=== PATIENT | female | born 1980 | race American Indian/Alaskan Native ===

== ENCOUNTER 2016-12-13 18:05 | Emergency (ER) | payer MEDICAID, OTHER ==
[2016-12-13 23:07] VITALS: BP 118/54
[2016-12-13] MEDS ORDERED: Clindamycin HCl 150 MG Cap PO ONE (23:15)
[2016-12-13] MEDS ORDERED: Lidocaine 2% Viscous Solution 15 ML Cup PO ONE (23:15)
--- NOTE | 2016-12-13 23:21 | EDM.PDOC ---
ED HPI GENERAL MEDICAL PROBLEM - General Chief Complaint: General Stated Complaint: TOOTH PAIN/[id number] Time Seen by Provider: 12/13/16 23:11 Source of Information: Reports: Patient History Limitations: Reports: No Limitations - History of Present Illness INITIAL COMMENTS - FREE TEXT/NARRATIVE: This 36 yo female patient reports to the ED with dental pain (right lower posterior). The patient has been in pain for the past 3-4 days and the pain is getting worse. The patient has an appointment with her dentist in about 1 week. 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 [No Known Home Meds] 09/11/14 [History] Past Medical History - Past Health History Medical/Surgical History: Denies Medical/Surgical History - Infectious Disease History Infectious Disease History: Reports: None - Past Surgical History HEENT Surgical History: Reports: Tonsillectomy Social & Family History - Family History Family Medical History: Noncontributory - Tobacco Use Smoking Status *Q: Current Every Day Smoker Years of Tobacco use: 21 Packs/Tins Daily: 0.5 Used Tobacco, but Quit: No - Caffeine Use Caffeine Use: Reports: Energy Drinks, Soda - Alcohol Use Days Per Week of Alcohol Use: 0 - Recreational Drug Use Recreational Drug Use: Yes Recreational Drug Type: Reports: Marijuana/Hashish Recreational Drug Use Frequency: Weekly - Living Situation & Occupation Living situation: Reports: Occupation: Employed ED ROS GENERAL - Review of Systems Review Of Systems: ROS reveals no pertinent complaints other than HPI. ED EXAM, GENERAL - Physical Exam Exam: See Below Exam Limited By: No Limitations General Appearance: Alert, WD/WN, Moderate Distress Eye Exam: Bilateral Eye: EOMI, Normal Inspection, PERRL Ears: Normal External Exam, Normal Canal, Hearing Grossly Normal, Normal TMs Nose: Normal Inspection, Normal Mucosa, No Blood Throat/Mouth: Normal Lips, Other (the patient has a chip and erythema of the right lower posterior tooth. ) Head: Atraumatic, Normocephalic Neck: Normal Inspection, Supple, Non-Tender, Full Range of Motion Respiratory/Chest: No Respiratory Distress, Lungs Clear, Normal Breath Sounds, No Accessory Muscle Use, Chest Non-Tender Cardiovascular: Normal Peripheral Pulses, Regular Rate, Rhythm, No Edema, No Gallop, No JVD, No Murmur, No Rub GI/Abdominal: Normal Bowel Sounds, Soft, Non-Tender, No Organomegaly, No Distention, No Abnormal Bruit, No Mass (Female) Exam: Deferred Rectal (Female) Exam: Deferred Back Exam: Normal Inspection, Full Range of Motion, NT Extremities: Normal Inspection, Normal Range of Motion, Non-Tender, Normal Capillary Refill, No Pedal Edema Neurological: Alert, Oriented, CN II-XII Intact, Normal Cognition, Normal Gait, Normal Reflexes, No Motor/Sensory Deficits Psychiatric: Normal Affect, Normal Mood Skin Exam: Warm, Dry, Intact, Normal Color, No Rash Lymphatic: No Adenopathy Course - Vital Signs Last Recorded V/S: Last Vital Signs Temp 36.8 C 12/13/16 23:06 Pulse 57 L 12/13/16 23:06 Resp 18 12/13/16 23:06 BP 118/54 L 12/13/16 23:06 Pulse Ox 99 12/13/16 23:06 - Orders/Labs/Meds Meds: Medications Discontinued Medications Generic Name Dose Route Start Last Admin Trade Name Yannickq PRN Reason Stop Dose Admin Clindamycin HCl 300 mg 12/13/16 23:15 Cleocin PO 12/13/16 23:16 ONETIME ONE Lidocaine HCl 15 ml 12/13/16 23:15 Xylocaine 2% Viscous PO 12/13/16 23:16 ONETIME ONE Departure - Departure Time of Disposition: 23:18 Disposition: Home, Self-Care 01 Condition: fair Clinical Impression: Dental abscess - Discharge Information Instructions: Dental Abscess, [id number] Forms: ED Department Discharge Care Plan Goals: The patient was advised of the examination results during the visit. The patient was given an oral dose of Clindamycin and Viscous Lidocaine while in the ED. The patient was discharged with a script for Clindamycin (300 mg) to take 1 by mouth 3 times per day for 10 days and Viscous Lidocaine (2%) #100 mL to apply 5-10 mL to affected area 3 times per day as needed. If the patient has any additional symptoms or concerns, the patient should follow-up with her dentist or return to the emergency department.
== END 2016-12-13 23:30 | disposition home or self-care (01) ==
LOC: DL.ED 18:05
DX: K04.7 Periapical abscess without sinus (principal); F17.210 Nicotine dependence, cigarettes, uncomplicated; Z98.890 Other specified postprocedural states
CPT/HCPCS: 99283; A9270

== ENCOUNTER 2017-10-11 21:05 | Emergency (ER) | payer MEDICAID ==
[2017-10-11] MEDS ORDERED: Ketorolac 30 MG/ML SDV IVPUSH ONE (21:36)
--- NOTE | 2017-10-11 21:38 | EDM.PDOC ---
ED HPI GENERAL MEDICAL PROBLEM - General Chief Complaint: General Stated Complaint: TOOTH PAIN Time Seen by Provider: 10/11/17 21:31 Source of Information: Reports: Patient, RN, RN Notes Reviewed History Limitations: Reports: No Limitations - History of Present Illness INITIAL COMMENTS - FREE TEXT/NARRATIVE: Pt presents to the ER with c/o mouth pain. She states that she has a molar that is crooked on the lower right side. She states she clenched her teeth during the night last night. She states this has made her mouth hurt since she woke up. Upon arrival, the patient is crying in pain. She states she has been seen in the ER for this in the past, and has not seen a dentist. She states she has taken ibuprofen, tylenol, and viscous lidocaine that she was previously prescribed. 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 [No Known Home Meds] 09/11/14 [History] Past Medical History - Past Health History Medical/Surgical History: Denies Medical/Surgical History Psychiatric History: Reports: Anxiety - Infectious Disease History Infectious Disease History: Reports: None - Past Surgical History HEENT Surgical History: Reports: Tonsillectomy Social & Family History - Family History Family Medical History: Noncontributory - Tobacco Use Smoking Status *Q: Current Every Day Smoker Years of Tobacco use: 22 Packs/Tins Daily: 0.5 Used Tobacco, but Quit: No - Caffeine Use Caffeine Use: Reports: Energy Drinks - Alcohol Use Days Per Week of Alcohol Use: 0 - Recreational Drug Use Recreational Drug Use: Yes Recreational Drug Type: Reports: Marijuana/Hashish Recreational Drug Use Frequency: Daily - Living Situation & Occupation Living situation: Reports: Occupation: Employed ED ROS GENERAL - Review of Systems Review Of Systems: ROS reveals no pertinent complaints other than HPI. ED EXAM, GENERAL - Physical Exam Exam: See Below Exam Limited By: Other (crying in pain) General Appearance: Alert, WD/WN, Severe Distress Eye Exam: Bilateral Eye: EOMI, Normal Inspection Ears: Normal External Exam, Hearing Grossly Normal Nose: Normal Inspection Throat/Mouth: Normal Inspection, Normal Lips, Normal Gums, Normal Oropharynx, Normal Voice, No Airway Compromise, Other (No erythema, swelling, bleeding, abscess of the area. Tooth 46 unremarkable) Head: Atraumatic, Normocephalic Neck: Normal Inspection, Supple, Non-Tender, Full Range of Motion Respiratory/Chest: No Respiratory Distress, Lungs Clear, Normal Breath Sounds, No Accessory Muscle Use, Chest Non-Tender Cardiovascular: Normal Peripheral Pulses, Regular Rate, Rhythm, No Edema, No Gallop, No JVD, No Murmur, No Rub Peripheral Pulses: 2+: Radial (L), Radial (R) GI/Abdominal: Normal Bowel Sounds, Soft, Non-Tender, No Organomegaly, No Distention, No Abnormal Bruit, No Mass (Female) Exam: Deferred Rectal (Female) Exam: Deferred Back Exam: Normal Inspection, Full Range of Motion, NT Extremities: Normal Inspection, Normal Range of Motion, Non-Tender, Normal Capillary Refill, No Pedal Edema Neurological: Alert, Oriented, CN II-XII Intact, Normal Cognition, Normal Gait, Normal Reflexes, No Motor/Sensory Deficits Psychiatric: Anxious, Tearful Skin Exam: Warm, Dry, Intact, Normal Color, No Rash Lymphatic: No Adenopathy Course - Vital Signs Last Recorded V/S: Last Vital Signs Temp 98.4 F 10/11/17 21:16 Pulse 94 10/11/17 21:16 Resp 20 10/11/17 21:16 BP Pulse Ox 97 10/11/17 21:16 - Orders/Labs/Meds Meds: Medications Discontinued Medications Generic Name Dose Route Start Last Admin Trade Name Lynsey PRN Reason Stop Dose Admin Ketorolac Tromethamine 60 mg 10/11/17 21:41 10/11/17 21:43 Toradol IM 10/11/17 21:42 60 mg ONETIME ONE Administration Departure - Departure Time of Disposition: 21:36 Disposition: Home, Self-Care 01 Clinical Impression: Mouth pain - Discharge Information Forms: ED Department Discharge Additional Instructions: Continue using the viscous lidocaine that you have Continue alternating tylenol and ibuprofen as directed for pain Follow up with your dentist
[2017-10-11] MEDS ORDERED: Ketorolac 30 MG/ML SDV IM ONE (21:41)
== END 2017-10-11 21:56 | disposition home or self-care (01) ==
LOC: DL.ED 21:05
DX: K13.79 Other lesions of oral mucosa (principal); F17.210 Nicotine dependence, cigarettes, uncomplicated
CPT/HCPCS: 96372; 99282; J1885

== ENCOUNTER 2021-01-26 17:25 | Emergency (ER) | payer MEDICAID ==
[2021-01-26] MEDS ORDERED: Tetracaine HCl/PF 0.5% 4 ML Bottle EYERT ONE (19:59)
[2021-01-26] MEDS ORDERED: Fluorescein 1 MG Ophth Strip EYERT ONE (19:59)
[2021-01-26 20:02] VITALS: BP 110/65; PULSE 79
[2021-01-26] MEDS ORDERED: Tetracaine HCl/PF 0.5% 4 ML Bottle ONE (20:22)
[2021-01-26] MEDS ORDERED: Azithromycin 250 MG Tab PO ONE (20:33)
[2021-01-26] MEDS ORDERED: cefTRIAXone 1 GM, Lidocaine 1% 2.1 ML IM ONE ×2 (20:33)
[2021-01-26 20:49] LABS: ANION GAP 11.6 mEq/L (7-13); CHLORIDE,CL 104 mmol/L (98-107); SODIUM,NA 141 mmol/L (136-145)
--- NOTE | 2021-01-26 20:52 | EDM.PDOC ---
ED HPI GENERAL MEDICAL PROBLEM - General Chief Complaint: Eye Problems Stated Complaint: RIGHT EYE INFECTED, PAIN PER PT Time Seen by Provider: 01/26/21 20:00 Source of Information: Reports: Patient, RN History Limitations: Reports: No Limitations - History of Present Illness INITIAL COMMENTS - FREE TEXT/NARRATIVE: ED with c/o pain and drainage to right eye. States semen in right eye saturday, increasing redness swelling and drainage worsening today. Reports possibility of STD. Eye painful, drainage, thick whitish yellow. No change in vision. No other symptoms Right Eye Pain Score (Numeric/FACES): 8 - Related Data Allergies Allergy/AdvReac Type Severity Reaction Status Date / Time No Known Allergies Allergy Verified 10/11/17 21:10 Home Meds: Home Meds Erythromycin Base [Erythromycin 0.5% Ophth Oint] 01/26/21 [History] Soft Lens Rinse,Store Solution [Saline Sensitive Eyes] 360 ml MC 01/26/21 [History] Past Medical History - Past Health History Medical/Surgical History: Denies Medical/Surgical History HEENT History: Reports: None Cardiovascular History: Reports: None Respiratory History: Reports: None Gastrointestinal History: Reports: None Genitourinary History: Reports: None 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: Musculoskeletal History: Reports: None Neurological History: Reports: None Psychiatric History: Reports: Anxiety Endocrine/Metabolic History: Reports: None Hematologic History: Reports: None Immunologic History: Reports: None Oncologic (Cancer) History: Reports: None Dermatologic History: Reports: None - Infectious Disease History Infectious Disease History: Reports: None - Past Surgical History Head Surgeries/Procedures: Reports: None HEENT Surgical History: Reports: Tonsillectomy Female Surgical History: Reports: D&C Social & Family History - Family History Family Medical History: No Pertinent Family History - Tobacco Use Tobacco Use Status *Q: Current Every Day Tobacco User Years of Tobacco use: 20 Packs/Tins Daily: 0.5 - Caffeine Use Caffeine Use: Reports: Soda - Recreational Drug Use Recreational Drug Use: Yes Recreational Drug Type: Reports: Marijuana/Hashish, Methamphetamine Recreational Drug Use Frequency: Socially - Living Situation & Occupation Living situation: Reports: Occupation: Employed ED ROS GENERAL - Review of Systems Review Of Systems: Comprehensive ROS is negative, except as noted in HPI. ED EXAM GENERAL W FULL EYE - Physical Exam Exam: See Below Exam Limited By: No Limitations General Appearance: Alert, Mild Distress Eye Exam: Right Eye: Conjunctival Injection, Periorbital Changes (swelling errythema), Bilateral Eye: EOMI, PERRL Eyelids: Right: Erythema Conjunctiva & Sclera: Right: Conjunctival Edema, Injected, Subconjuctival Hemorrhage Cornea Exam: Right: Examined with Flourescein Extraocular Movements: Bilateral: Intact Pupillary Size: Bilateral: 4 mm Pupillary Reaction: Bilateral: Brisk Ears: Normal External Exam, Hearing Grossly Normal Nose: Normal Inspection Throat/Mouth: Normal Inspection Neck: Normal Inspection Respiratory/Chest: No Respiratory Distress, Lungs Clear, Normal Breath Sounds Cardiovascular: Normal Peripheral Pulses, Regular Rate, Rhythm GI/Abdominal: Normal Bowel Sounds Extremities: Normal Inspection, Normal Range of Motion Neurological: Alert, Oriented, Normal Cognition Psychiatric: Normal Affect Skin Exam: Warm, Dry Course - Vital Signs Last Recorded V/S: Last Vital Signs Temp 98.5 F 01/26/21 19:59 Pulse 79 01/26/21 19:59 Resp 16 01/26/21 19:59 BP 110/65 01/26/21 19:59 Pulse Ox 99 01/26/21 19:59 - Orders/Labs/Meds Orders: Active Orders 24 hr Category Date Time Status CULTURE BLOOD [BC] Stat Lab 01/26/21 20:20 Results CULTURE EYE [RM] Stat Lab 01/26/21 20:20 Received MISC TEST Stat Lab 01/26/21 20:30 Received Labs: Laboratory Tests 01/26/21 01/26/21 Range/Units 20:20 20:20 WBC 10.6 H (5.0-10.0) 10^3/uL RBC 4.08 L (4.2-5.4) 10^6/uL Hgb 12.8 (12.0-16.0) g/dL Hct 38.2 (37.0-47.0) % MCV 93.6 (80-100) fL MCH 31.4 (27.0-34.0) pg MCHC 33.5 (33.0-35.0) g/dL Plt Count 372 (150-450) 10^3/uL Neut % (Auto) 74.5 (42.2-75.2) % Lymph % (Auto) 17.3 L (20.5-50.1) % Lucas % (Auto) 7.1 (2-8) % Eos % (Auto) 0.9 L (1.0-3.0) % Baso % (Auto) 0.2 (0.0-1.0) % Sodium 141 (136-145) mmol/L Potassium 3.6 (3.5-5.1) mmol/L Chloride 104 (98-107) mmol/L Carbon Dioxide 29 (21-32) mmol/L Anion Gap 11.6 (7-13) mEq/L BUN 7 (7-18) mg/dL Creatinine 0.79 (0.55-1.02) mg/dL Est Cr Clr Drug Dosing 86.88 mL/min Estimated GFR (MDRD) > 60 BUN/Creatinine Ratio 8.9 (No establ ref range) Glucose 96 (70-99) mg/dL Calcium 8.2 L (8.5-10.1) mg/dL Total Bilirubin 0.5 (0.2-1.0) mg/dL AST 10 L (15-37) U/L ALT 24 (14-59) U/L Alkaline Phosphatase 76 (46-116) U/L Total Protein 6.5 (6.4-8.2) g/dL Albumin 3.4 (3.4-5.0) g/dL Globulin 3.1 Albumin/Globulin Ratio 1.1 Meds: Medications Discontinued Medications Generic Name Dose Route Start Last Admin Trade Name Yannickq PRN Reason Stop Dose Admin Azithromycin 1,000 mg 01/26/21 20:33 01/26/21 20:58 Azithromycin 250 Mg Tab PO 01/26/21 20:34 1,000 mg ONETIME ONE Administration Ciprofloxacin Confirm 01/26/21 20:53 01/26/21 21:00 Ciprofloxacin 0.3% Ophth Soln 5 Ml Bottle Administered 01/26/21 20:54 1 bottle Dose Administration 5 ml .ROUTE .STK-MED ONE Ceftriaxone Sodium 1 gm/ 0 gm 01/26/21 20:33 01/26/21 20:57 Lidocaine HCl 2.1 ml IM 01/26/21 20:34 1 inj ONETIME ONE Administration Fluorescein Sodium 1 mg 01/26/21 19:59 01/26/21 20:07 Fluorescein 1 Mg Ophth Strip EYERT 01/26/21 20:00 1 mg ONETIME ONE Administration Tetracaine HCl 1 ml 01/26/21 19:59 01/26/21 20:07 Tetracaine Hcl/Pf 0.5% 4 Ml Bottle EYERT 01/26/21 20:00 1 ml ASDIRECTED ONE Administration Tetracaine HCl Confirm 01/26/21 20:22 Tetracaine Hcl/Pf 0.5% 4 Ml Bottle Administered 01/26/21 20:23 Dose 4 ml .ROUTE .STK-MED ONE Departure - Departure Time of Disposition: 20:47 Disposition: Home, Self-Care 01 Condition: Good Clinical Impression: Periorbital cellulitis of right eye Conjunctivitis Qualifiers: Conjunctivitis type: acute Acute conjunctivitis type: unspecified Laterality: right Qualified Code(s): H10.31 - Unspecified acute conjunctivitis, right eye - Discharge Information *PRESCRIPTION DRUG MONITORING PROGRAM REVIEWED*: No *COPY OF PRESCRIPTION DRUG MONITORING REPORT IN PATIENT RADHA: No Instructions: Bacterial Conjunctivitis, Adult, [id number] Forms: ED Department Discharge Additional Instructions: wipe drainage gently inner to outer follow up eye clinic tomorrow Augmentin 875mg one twice daily for 10 days cipro 2 drops every 2 hours while awake for one day then every 4 hours for 5 days dark glasses cool pack tonight Sepsis Event Note (ED) - Evaluation Sepsis Screening Result: No Definite Risk - Focused Exam Vital Signs: Vital Signs Temp Pulse Resp BP Pulse Ox 01/26/21 19:59 98.5 F 79 16 110/65 99 - My Orders Last 24 Hours: My Active Orders 01/26/21 20:20 CULTURE BLOOD [BC] Stat CULTURE EYE [RM] Stat - Assessment/Plan Last 24 Hours: My Active Orders 01/26/21 20:20 CULTURE BLOOD [BC] Stat CULTURE EYE [RM] Stat
[2021-01-26] MEDS ORDERED: Ciprofloxacin 0.3% Ophth Soln 5 ML Bottle ONE (20:53)
== END 2021-01-26 21:03 | disposition home or self-care (01) ==
LOC: DL.ED 17:25
DX: L03.213 Periorbital cellulitis (principal); H10.31 Unspecified acute conjunctivitis, right eye
CPT/HCPCS: 36415; 80053; 85025; 87040; 87070; 87077; 87529; 96372; 99283; A9270-GY; J0696

== ENCOUNTER 2021-10-18 11:14 | Emergency (ER) | payer MEDICAID ==
[2021-10-18 11:42] VITALS: BP 131/46; PULSE 98
[2021-10-18 11:57] LABS: ANION GAP 10.8 mEq/L (7-13); CHLORIDE,CL 101 mmol/L (98-107); SODIUM,NA 138 mmol/L (136-145)
[2021-10-18] MEDS ORDERED: HYDROmorphone 0.5 MG/0.5 ML Syringe IVPUSH ONE (12:07)
[2021-10-18] MEDS ORDERED: Sodium Chloride 0.9% 1,000 ML IV ONE (12:07)
[2021-10-18] MEDS ORDERED: Ondansetron 4 MG/2 ML SDV IVPUSH ONE (12:08)
[2021-10-18] MEDS ORDERED: Iopamidol 612 MG/ML 100 ML Bottle IVPUSH ONE (12:10)
[2021-10-18 12:18] LABS: BARBITURATES,URINE NEGATIVE (NEGATIVE); BENZODIAZEPINE,URINE NEGATIVE (NEGATIVE); MDMA (ECSTASY), URINE NEGATIVE (NEGATIVE); METHADONE,URINE NEGATIVE (NEGATIVE); METHAMPHETAMINES,URINE POSITIVE (NEGATIVE); OPIATES,URINE NEGATIVE (NEGATIVE); PHENCYCLIDINE,URINE NEGATIVE (NEGATIVE); TCA,URINE NEGATIVE (NEGATIVE)
[2021-10-18 12:19] LABS: AMPHETAMINES,URINE POSITIVE (NEGATIVE); OXYCODONE,URINE NEGATIVE (NEGATIVE)
[2021-10-18] MEDS: Sodium Chloride 0.9% 10 ML Syringe FLUSH PRN ×2 (12:49→12:57)
[2021-10-18] MEDS ORDERED: Ketorolac 30 MG/ML SDV IVPUSH ONE (13:56)
[2021-10-18] MEDS ORDERED: Ciprofloxacin 500 MG Tab PO ONE (13:56)
[2021-10-18] MEDS ORDERED: Doxycycline Monohydrate 100 MG Cap PO ONE (13:57)
[2021-10-18] MEDS ORDERED: cefTRIAXone 1 GM, Lidocaine 1% 2.1 ML IM ONE ×2 (13:58)
== END 2021-10-18 14:45 | disposition home or self-care (01) ==
LOC: DL.ED 11:14
DX: N30.00 Acute cystitis without hematuria (principal); Z72.0 Tobacco use; Z20.2 Contact with and (suspected) exposure to infections with a predominantly sexual mode of transmission
CPT/HCPCS: 36415; 74177; 80053; 80305-QW; 80307; 81001; 81025; 83605; 83690; 83735; 85025; 86140; 87086; 87491; 87563; 87591; 96372; 96374; 96375; 99284; 99284-25; A9270-GY; J0696; J1170; J1885; J2405; J3490; J7030; Q9967

== ENCOUNTER 2022-10-08 18:19 | Emergency (ER) | payer MEDICAID, OTHER ==
[2022-10-08 18:50] VITALS: BP 134/116; PULSE 88
== END 2022-10-08 20:17 | disposition home or self-care (01) ==
LOC: DL.ED 18:19
DX: M25.532 Pain in left wrist (principal); F17.210 Nicotine dependence, cigarettes, uncomplicated; W00.9XXA Unspecified fall due to ice and snow, initial encounter
CPT/HCPCS: 73100-LT; 99282; 99283

== ENCOUNTER 2024-03-01 10:46 | Emergency (ER) | payer MEDICAID, OTHER ==
[2024-03-01 11:14] LABS: BASOPHILS PERCENT AUTO 0.8 % (0.0-1.0); EOSINOPHILS PERCENT AUTO 7.3 % (1.0-3.0); HEMATOCRIT 40.8 % (37.0-47.0); HEMOGLOBIN 13.7 g/dL (12.0-16.0); LYMPHOCYTES PERCENT AUTO 35.4 % (20.5-50.1); MEAN CORPUSCULAR HEMOGLOBIN 30.3 pg (27.0-34.0); MEAN CORPUSCULAR HGB CONC 33.6 g/dL (33.0-35.0); MEAN CORPUSCULAR VOLUME 90.3 fL (80-100); MONOCYTES PERCENT AUTO 8.4 % (2-8); NEUTROPHILS PERCENT AUTO 48.1 % (42.2-75.2); PLATELET COUNT,PLT 365 10^3/uL (150-450); RED BLOOD CELL COUNT 4.52 10^6/uL (4.2-5.4); WHITE BLOOD CELL COUNT,WBC 6.3 10^3/uL (5.0-10.0)
[2024-03-01] MEDS: Albuterol 6.7 GM Inhaler INH ONE (11:18)
[2024-03-01 11:36] LABS: ALANINE AMINOTRANSFERASE,ALT 30 U/L (14-59); ALBUMIN 3.4 g/dL (3.4-5.0); ALKALINE PHOSPHATASE 89 U/L (46-116); ANION GAP 12.1 mEq/L (7-13); ASPARTATE AMNIOTRANSFERASE,AST 19 U/L (15-37); BILIRUBIN TOTAL 0.4 mg/dL (0.2-1.0); BLOOD UREA NITROGEN,BUN 8 mg/dL (7-18); BUN/CREATININE RATIO 9.8 (No establ ref range); CALCIUM 8.6 mg/dL (8.5-10.1); CARBON DIOXIDE,CO2 27 mmol/L (21-32); CHLORIDE,CL 107 mmol/L (98-107); CREATININE 0.82 mg/dL (0.55-1.02); ESTIMATED GFR 92 mL/min (>=60); GLUCOSE RANDOM 87 mg/dL (70-99); POTASSIUM,K 4.1 mmol/L (3.5-5.1); PROTEIN TOTAL,TP 6.9 g/dL (6.4-8.2); SODIUM,NA 142 mmol/L (136-145)
[2024-03-01 11:47] VITALS: BP 126/74; PULSE 73
== END 2024-03-01 11:52 | disposition home or self-care (01) ==
LOC: DL.ED 10:46
DX: J45.40 Moderate persistent asthma, uncomplicated (principal); Z88.0 Allergy status to penicillin; Z91.048 Other nonmedicinal substance allergy status
CPT/HCPCS: 36415; 80053; 84484; 85025; 93005; 99285; A9270